=== PATIENT | female | born 1995 | race Caucasian/White ===

== ENCOUNTER 2017-02-19 12:44 | Emergency (ER) | payer MEDICAID ==
[~2017-02-19] VITALS: Ht 157.5 cm; Wt 57.7 kg
[~2017-02-19 12:44] MED LIST: PROP10 PO
[2017-02-19] MEDS ORDERED: KETOROLAC TROMETHAMINE 60 MG/2 ML VIAL IM ONE (13:30)
[2017-02-19] MEDS ORDERED: ONDANSETRON HCL 4 MG TABLET PO ONE (13:30)
[2017-02-19] MEDS ORDERED: METHOCARBAMOL 500 MG TABLET PO ONE (13:30)
[2017-02-19 15:23] VITALS: BP 108/72
== END 2017-02-19 15:56 | disposition home or self-care (01) ==
LOC: EMS 12:45
DX: S10.93XA Contusion of unspecified part of neck, initial encounter (principal); S20.229A Contusion of unspecified back wall of thorax, initial encounter; S09.90XA Unspecified injury of head, initial encounter; M25.512 Pain in left shoulder; V00.131A Fall from skateboard, initial encounter; Y93.51 Activity, roller skating (inline) and skateboarding; Y92.89 Other specified places as the place of occurrence of the external cause; Y99.8 Other external cause status
CPT/HCPCS: 70450; 96372; 99284; J1885; Q0162; 81025